=== PATIENT | male | born 1985 | race Caucasian/White ===

== ENCOUNTER 2021-11-20 18:31 | Emergency (ER) | payer OTHER ==
[2021-11-20] MEDS ORDERED: Ketorolac 60 MG/2 ML SDV IM ONE (20:25)
== END 2021-11-20 20:45 | disposition home or self-care (01) ==
LOC: MW.ED 18:31
DX: M54.41 Lumbago with sciatica, right side (principal); M54.42 Lumbago with sciatica, left side
CPT/HCPCS: 96372; 99283